=== PATIENT | female | born 1970 | race African-American/Black ===

== ENCOUNTER 2017-01-20 00:30 | Emergency (ER) | payer BC ==
[~2017-01-20] VITALS: Ht 160 cm; Wt 64.4 kg
[~2017-01-20 00:30] MED LIST: FLEXERIL PO; NAPROSYN500 MG PO; NORCO 5-325 TA1 EACH PO; PERCOCET 5-3251 EACH PO; PHENERGAN 25 MG25 M1 PO; PRILOSEC40 MG PO; ULTRAM 50MG TAB50 MG PO; ZANTAC 150MG T150 MG PO
[2017-01-20] MEDS ORDERED: OXYCODON-ACETA1 EAC1 PO (00:38)
[2017-01-20 01:26] LABS: ABSOLUTE NEUTROPHILS 2.9 thou/uL (1.4-8.2); BASOPHILS 0.5 % (0.0-2.0); EOSINOPHILS 0.9 % (0.0-3.0); HEMATOCRIT 40.9 % (37.0-47.0); HEMOGLOBIN 13.8 gm/dL (12.0-15.0); LYMPHOCYTES 29.9 % (24.0-44.0); MCH 28.2 pg (26.0-34.0); MCHC 33.9 g/dL (28.0-37.0); MCV 83.3 fL (80.0-100.0); MONOCYTES 5.8 % (1.0-8.0); PLATELET COUNT 217 thou/uL (150-400); POLYS 62.9 % (36.0-66.0); RBC 4.91 mil/uL (4.20-5.00); RDW 13.4 % (10.5-14.5); WBC 4.5 thou/uL (4.0-11.0)
[2017-01-20 01:28] LABS: MANUAL DIFF NO
[2017-01-20 01:36] LABS: CALCIUM 9.7 mg/dL (8.5-10.1); CREATININE 1.1 mg/dL (0.6-1.3); POTASSIUM 3.5 mmol/L (3.5-5.1)
[2017-01-20 01:37] LABS: URINE BILIRUBIN NEGATIVE (Negative); URINE BLOOD NEGATIVE (Negative); URINE COLOR YELLOW; URINE GLUCOSE-RANDOM* NEGATIVE (Negative); URINE KETONES NEGATIVE (Negative); URINE LEUKOCYTES-REFLEX 1+ (Negative); URINE PROTEIN (DIPSTICK) NEGATIVE (Negative); URINE UROBILINOGEN 0.2 E.U./dl (0.2-1.0)
[2017-01-20 01:39] LABS: APTT 27.1 Seconds (24.5-32.8); PROTIME 10.7 Seconds (9.3-11.4)
[2017-01-20 01:52] LABS: CASTS None Seen /LPF (None Seen); SQUAMOUS 0-3 Few /LPF (0-3)
[2017-01-20 01:53] LABS: CRYSTALS None Seen /LPF (None Seen); URINE RBC None Seen /HPF (0-2); URINE WBC-REFLEX 0-5 Rare /HPF (0-5)
[2017-01-20] MEDS ORDERED: COMPAZINE5 M1 PO (03:50)
[2017-01-20 04:05] VITALS: BP 134/82
== END 2017-01-20 04:06 | disposition home or self-care (01) ==
LOC: ER 00:30
PROVIDERS: Emergency Medicine
DX: R42 Dizziness and giddiness (principal); M54.5 Low back pain; Z90.710 Acquired absence of both cervix and uterus; Z90.89 Acquired absence of other organs

== ENCOUNTER 2020-09-11 11:03 | Emergency (ER) | payer BC ==
[~2020-09-11] VITALS: Ht 154.9 cm; Wt 71.2 kg
[~2020-09-11 11:03] MED LIST changes: +COMPAZINE5 M1 PO; +OXYCODON-ACETA1 EAC1 PO
[2020-09-11 11:05] VITALS: BP 102/67
[2020-09-11] MEDS ORDERED: PREDNISONE 10 M10 MG PO (12:41)
[2020-09-11] MEDS ORDERED: NORFLEX100 MG PO (12:41)
== END 2020-09-11 13:22 | disposition home or self-care (01) ==
LOC: ER 11:03
DX: M25.461 Effusion, right knee (principal); Z90.710 Acquired absence of both cervix and uterus

== ENCOUNTER 2021-03-10 09:27 | Emergency (ER) | payer BC ==
[~2021-03-10] VITALS: Ht 157.5 cm; Wt 73.9 kg
[~2021-03-10 09:27] MED LIST changes: +NORFLEX100 MG PO; +PREDNISONE 10 M10 MG PO
[2021-03-10 09:50] LABS: URINE BILIRUBIN NEGATIVE (Negative); URINE BLOOD NEGATIVE (Negative); URINE CLARITY CLEAR; URINE COLOR YELLOW; URINE GLUCOSE-RANDOM* NEGATIVE (Negative); URINE KETONES NEGATIVE (Negative); URINE LEUKOCYTES-REFLEX 1+ (Negative); URINE NITRITE-REFLEX NEGATIVE (Negative); URINE PROTEIN (DIPSTICK) NEGATIVE (Negative); URINE UROBILINOGEN 0.2 E.U./dl (0.2-1.0)
[2021-03-10 10:00] LABS: BACTERIA-REFLEX None Seen /HPF (None Seen); CASTS None Seen /LPF (None Seen); CRYSTALS None Seen /LPF (None Seen); SQUAMOUS 0-3 Few /LPF (0-3); URINE RBC None Seen /HPF (NONE SEEN); URINE WBC-REFLEX 0-5 Rare /HPF (0-5)
[2021-03-10 10:03] LABS: ABSOLUTE NEUTROPHILS 1.5 thou/uL (1.4-8.2); BASOPHILS 1.2 % (0.0-2.0); EOSINOPHILS 2.7 % (0.0-3.0); HEMATOCRIT 35.9 % (37.0-47.0); HEMOGLOBIN 12.6 gm/dL (12.0-15.0); MCH 29.6 pg (26.0-34.0); MCHC 35.2 g/dL (28.0-37.0); MCV 83.9 fL (80.0-100.0); MONOCYTES 9.5 % (1.0-8.0); PLATELET COUNT 239 thou/uL (150-400); POLYS 35.6 % (36.0-66.0); RBC 4.28 mil/uL (4.20-5.00); RDW 13.7 % (10.5-14.5); WBC 4.3 thou/uL (4.0-11.0)
[2021-03-10 10:14] LABS: CALCIUM 9.1 mg/dL (8.5-10.1); CREATININE 1.1 mg/dL (0.6-1.0)
[2021-03-10 10:20] LABS: ALBUMIN 3.8 g/dL (3.4-5.0); TOTAL BILIRUBIN 0.4 mg/dL (0.2-1.0); TOTAL PROTEIN 6.9 g/dL (6.4-8.2)
[2021-03-10] MEDS ORDERED: DIAZEPAM 5 MG5 M1 PO (11:17)
[2021-03-10] MEDS ORDERED: MEDROLDOSEPACK PO (11:17)
[2021-03-10 11:27] VITALS: BP 114/66
== END 2021-03-10 11:35 | disposition home or self-care (01) ==
LOC: ER 09:27
PROVIDERS: Emergency Medicine
DX: M54.5 Low back pain (principal); R10.813 Right lower quadrant abdominal tenderness; Z90.710 Acquired absence of both cervix and uterus; Z88.8 Allergy status to other drugs, medicaments and biological substances

== ENCOUNTER → 2021-07-04 | Outpatient (CLI) | payer BC ==
[~2021-07-04] MED LIST changes: +DIAZEPAM 5 MG5 M1 PO; +MEDROLDOSEPACK PO
== END ==
LOC: RAD 07:55
PROVIDERS: ATTEND Pediatrics
DX: R06.02 Shortness of breath (principal)